=== PATIENT | female | born 1950 | race Caucasian/White ===

== ENCOUNTER 2022-08-14 14:48 | Outpatient (CLI) | payer MEDICARE, SELFPAY ==
--- NOTE | 2022-08-14 15:00 | CRLHL7_ITS ---
For Patients: As a result of the Century Cures Act, medical imaging exams and procedure reports are released immediately into your electronic medical record. You may view this report before your referring provider. If you have questions, please contact your health care provider. INDICATION: Right clavicular mass. Previous reduction mammoplasty. Gastric banding. TECHNIQUE: Contrast-enhanced CT of the chest. 75 cc nonionic Isovue-[id number] administered. COMPARISON: None. FINDINGS: No supraclavicular mass identified. No thoracic lymphadenopathy. No pleural or pericardial effusions. The trachea and mainstem bronchi are patent and clear. The thoracic aorta is of normal caliber. The mid and distal esophagus is thick-walled with a small esophageal hiatal hernia and postsurgical changes from laparoscopic gastric banding. The esophageal wall thickening could be related to esophagitis. Consider double-contrast esophagram or upper endoscopy if clinically indicated. The included thyroid gland is within normal limits. The included breast tissue is unremarkable. Normal adrenal glands. No splenomegaly. No definite hydronephrosis although neither kidney is fully or optimally included. The visualized gallbladder and liver are grossly unremarkable. The included skeleton demonstrates mild hypertrophic spurring of the right medial clavicular head. Degenerative disc disease of the lower thoracic/upper lumbar spine. IMPRESSION: 1. The distal esophagus with an esophageal hiatal hernia. Consider upper endoscopy or double-contrast esophagram to exclude a mucosal lesions. Clinical correlation is recommended as well. Postsurgical change from a laparoscopic gastric band. 2. No acute cardiopulmonary process identified. Clear included lungs. No thoracic lymphadenopathy. 3. No abnormality in the right supraclavicular space. Please note that all CT scans at this facility use dose modulation, iterative reconstruction, and/or weight-based dosing when appropriate to reduce radiation dose to as low as reasonably achievable. Dictated by Will Aguiar MD @ 08/14/2022 7:13:19 PM (Electronically Signed)
[2022-08-14 15:20] LABS: Creatinine* 0.9 mg/dL (0.5-1.5); Estimated Glomerular Filt Rate 68 ml/min
== END 2022-08-14 14:49 | disposition home or self-care (01) ==
LOC: CT 14:49
PROVIDERS: PCP Internal Medicine; Visit Provider Internal Medicine
DX: R22.2 Localized swelling, mass and lump, trunk (principal); K44.9 Diaphragmatic hernia without obstruction or gangrene
CPT/HCPCS: 36415; 71260; 82565; Q9967

== ENCOUNTER 2022-09-11 15:49 | Outpatient (CLI) | payer MEDICARE, SELFPAY ==
--- NOTE | 2022-09-11 16:00 | CRLHL7_ITS ---
For Patients: As a result of the Century Cures Act, medical imaging exams and procedure reports are released immediately into your electronic medical record. You may view this report before your referring provider. If you have questions, please contact your health care provider. Indication: LUMP ANTERIOR NECK Technique: Grayscale and color Doppler ultrasound of the area of concern performed along the right clavicle. Comparison: CT 08/14/2022 Findings: There is hypertrophic prominence to the medial right clavicular and which corresponds with the area of concern. If associated degenerative joint disease of the sternoclavicular joint with joint space narrowing, spurring and synovial hypertrophy. No suspicious findings. No abnormal vascularity. Impression: Right sternoclavicular degenerative joint disease with hypertrophic spurring of the right medial clavicle accounting for the clinical findings. No suspicious findings. Dictated by Talat Foy MD @ 09/12/2022 3:09:39 PM (Electronically Signed)
--- NOTE | 2022-09-11 17:15 | CRLHL7_ITS ---
For Patients: As a result of the Century Cures Act, medical imaging exams and procedure reports are released immediately into your electronic medical record. You may view this report before your referring provider. If you have questions, please contact your health care provider. BILATERAL SCREENING MAMMOGRAM WITH COMPUTER-AIDED DETECTION AND TOMOSYNTHESIS TECHNIQUE: CC and MLO views were obtained. These mammographic images have been obtained using full-field digital technique. These mammographic images were interpreted with the benefit of computer-aided detection. Breast Tomosynthesis was used in this interpretation. COMPARISON FILM: 07/07/2021, 06/17/2018, 06/04/2017. FINDINGS: The breasts are heterogeneously dense, which may obscure small masses IMPRESSION: There is no radiographic evidence for malignancy. ASSESSMENT: BI-RADS Category 1: Negative RECOMMENDATION: Routine screening mammogram in 1 year. A lay language report of this examination will be provided to the patient. Talat Foy M.D. Diagnostic Radiologist [email or web address] Transcribed: 3:38 pm DW/Dictated by: Talat Foy MD @ 09/12/2022 9:07:00 AM (Electronically Signed)
== END 2022-09-11 15:50 | disposition home or self-care (01) ==
LOC: US 15:50
PROVIDERS: PCP Internal Medicine; Visit Provider Internal Medicine
DX: Z12.31 Encounter for screening mammogram for malignant neoplasm of breast (principal); R92.2 Inconclusive mammogram; R22.1 Localized swelling, mass and lump, neck; M19.09 Primary osteoarthritis, other specified site
CPT/HCPCS: 76536; 77063; 77067

== ENCOUNTER 2022-11-16 08:25 | Outpatient (CLI) | payer MEDICARE, SELFPAY ==
[2022-11-16 10:03] LABS: Chloride* 107 mmol/L (96-114); Potassium* 4.2 mmol/L (3.6-5.1); Sodium* 141 mmol/L (135-149)
[2022-11-16 10:05] LABS: Cholesterol* 197 mg/dL (90-199)
[2022-11-16 10:06] LABS: Blood Urea Nitrogen* 17 mg/dL (7-30); Calcium* 9.1 mg/dL (8.4-10.6); Carbon Dioxide* 29 mmol/L (20-32); Creatinine* 0.8 mg/dL (0.5-1.5); Estimated Glomerular Filt Rate 79 ml/min; Glucose* 106 mg/dL (60-115); Triglycerides* 121 mg/dL (40-149)
[2022-11-16 10:07] LABS: HDL Cholesterol* 81 mg/dL (>=50); LDL Cholesterol Calculated 92 mg/dL (<100)
[2022-11-16 10:22] LABS: Vitamin D 25 Hydroxy* 56 ng/mL (30-80)
== END 2022-11-16 08:26 | disposition home or self-care (01) ==
LOC: NFLDREF 08:25
PROVIDERS: PCP Internal Medicine; Visit Provider Internal Medicine
DX: I10 Essential (primary) hypertension (principal); E03.9 Hypothyroidism, unspecified; E78.5 Hyperlipidemia, unspecified; M81.0 Age-related osteoporosis without current pathological fracture
CPT/HCPCS: 80048; 80061; 82306; 84443

== ENCOUNTER 2023-04-10 08:45 | Outpatient (CLI) | payer MEDICARE, SELFPAY ==
--- NOTE | 2023-04-10 09:15 | MR_ITS ---
[facility] [address] [facility] [address] Phone:?[phone] Fax:?[phone] Referring Physician Information: Lilli Lizarraga M.D. [facility] [address] [facility] [address] Phone:?[phone] Fax:?[phone] Patient:?Tracee Almazan D.O.B:?1950 Sex:?Female Phone:?[phone] [facility] MRN:?[id number] Exam Date:?04/10/2023 EXAM: MRI of the LEFT SHOULDER, without contrast CLINICAL INFORMATION: Female, 72 years old, with left shoulder pain. INDICATION: Evaluate for rotator cuff tear. PRIOR SURGERY: None reported. PLAIN FILMS: None available. COMPARISONS: No prior MRIs available. TECHNICAL INFORMATION: Using a 1.5T MR scanner and a localizing surface coil: coronal obliques: PD, T2, STIR sagittal obliques: PD, T2 axials: PD, T2 SEDATION: None CONTRAST: None FINDINGS: Bones: Proximal humerus: No fracture or marrow edema/pathology. No humeral Hill-Sachs or reverse Hill-Sachs lesion/impaction or contusion. Glenoid: No fracture or marrow edema/pathology. No osseous Bankart lesion. Rotator cuff and muscles/tendons: Supraspinatus: Mild-moderate supraspinatus tendinopathy with partial-thickness articular surface tearing of the posterior distal tendon fibers over an area measuring 8 mm anteroposterior by 7 mm mediolateral and involving approximate one third of the tendon thickness. There is also a 4 x 5 mm area of low-grade partial-thickness anterior insertional footprint tearing. No full-thickness tear or muscle atrophy. Infraspinatus: Mild infraspinatus tendinopathy, without tendon tear or muscle atrophy. Teres minor: No tendinopathy, tear or atrophy. Subscapularis: Mild tendinopathy of the superior distal subscapularis, without tendon tear or muscle atrophy. Deltoid: No strain or atrophy. Coracoacromial arch: Acromion morphology: The acromion has type II morphology. No discrete subacromial osseous spur or os acromiale. Acromiohumeral space: The acromiohumeral space is within normal limits. Coracohumeral space: The coracohumeral space is within normal limits. Acromioclavicular joint: Joint: Mild-moderate AC joint arthropathy with 3 mm of inferior osteophytosis, which effaces the underlying supraspinatus (sagittal T2 series 9 image 14 and coronal T2 series 7 image 9). Ligaments: Coracoclavicular ligaments are intact. Bursae: Subacromial-subdeltoid: Mild subacromial-subdeltoid bursitis. Subcoracoid: No convincing subcoracoid bursal thickening/bursitis. Biceps tendon: The long head of the biceps tendon is present within the bicipital groove. Moderate tendinopathy and ill-defined low-intermediate grade partial tearing of the intra-articular biceps long head tendon (sagittal T2 series 9 images 7-13). Glenohumeral joint: Effusion/cyst: Large glenohumeral joint effusion, with extensive synovitis/debris throughout the joint space. Articular cartilage: Humeral head: Moderate generalized thinning of the articular cartilage is present throughout the superomedial and medial aspects of the humeral head with mild inferomedial marginal osteophytosis. Glenoid: Mild to moderate generalized thinning of the glenoid articular cartilage, with mild marginal osteophytosis. Loose bodies: No discrete intra-articular body within the joint. Labrum:?Circumferential degeneration and fraying of the labrum, which is of doubtful clinical significance. No paralabral cyst. Inferior glenohumeral ligament/axillary pouch:?Moderate thickening of inferior capsuloligamentous structures (coronal PD series 5 images 12-18). Additionally, there is soft tissue thickening throughout the rotator interval (sagittal PD series 8 images 9-15). IMPRESSION: 1. Mild-moderate supraspinatus tendinopathy with a small area of low-grade partial-thickness articular surface tearing of the posterior distal tendon fibers as well as a small area of low-grade partial-thickness anterior insertional footprint tearing. 2. Mild infraspinatus & subscapularis tendinopathy, without tear. 3. Mild-moderate osteoarthritis of the glenohumeral joint with a large joint effusion and extensive synovitis/debris throughout the joint space. 4. Moderate tendinopathy and ill-defined low-intermediate grade partial- thickness tearing of the intra-articular biceps long head tendon. 5. Circumferential degeneration and fraying of the labrum, which is of doubtful clinical significance. 6. Findings in keeping with any clinical symptoms of adhesive capsulitis. BC Electronically signed on 04/10/2023 3:29:00 PM by Wayne Enciso M.D.
== END 2023-04-10 08:46 | disposition home or self-care (01) ==
LOC: MRI 08:46
PROVIDERS: PCP Internal Medicine; Visit Provider Internal Medicine
DX: M25.512 Pain in left shoulder (principal); M67.912 Unspecified disorder of synovium and tendon, left shoulder; M75.102 Unspecified rotator cuff tear or rupture of left shoulder, not specified as traumatic; M19.012 Primary osteoarthritis, left shoulder; M75.02 Adhesive capsulitis of left shoulder
CPT/HCPCS: 73221

== ENCOUNTER 2023-09-12 14:40 | Outpatient (CLI) | payer MEDICARE, SELFPAY ==
[2023-09-12 15:49] VITALS: BP 179/94; PULSE 67
--- NOTE | 2023-09-12 15:56 | W.PM.STED ---
Stress Test Note Date Date Seen: 09/12/23 Date of test: 09/12/23 Providers Referring provider: Clayton Barber Primary care provider: Lilli Lizarraga Stress test physician: Es Gottlieb Stress Test Note Stress test ordered: Stress Echo Indication for test: Intermittent chest pain Stress test medicine: None Results discussion: Resting EKG: Sinus rhythm, 63 beats per minute. Flipped T-waves without ST segment changes certainly in aVL, possibly lead 1. Resting blood pressure: 150/78 Stress test: Patient was exercised on the treadmill following standard Albin protocol. She was able to exercise 6 minutes 20 seconds, needing to stop due to reaching maximum exercise capacity. She did feel short of breath and her legs were tired. She had no chest pain. She had a maximum heart rate of 129 beats per minute which was 102% a calculated target heart rate of 126. This is equivalent to 7.5 Mets. She had a high rate pressure product of 22,264. She had a maximum blood pressure of 2 8/72 showing hypertensive response to exercise. Of note, patient took none of her morning medicines which would have included amlodipine and furosemide. There were no concerning ischemic changes, no ST segment changes indicative of ischemia. Again, patient had no chest pain. She was discharged home in stable condition. Impression: Subjectively negative, objectively negative EKG portion of this stress echo. Follow up suggested: Await echo images to couple this for a full formal diagnostic. Patient discharged home in stable condition interim.
== END 2023-09-12 14:41 | disposition home or self-care (01) ==
LOC: STRESS 14:41
PROVIDERS: PCP Internal Medicine; Visit Provider Internal Medicine
DX: R07.9 Chest pain, unspecified (principal)
CPT/HCPCS: 93016; 93325; 93351

== ENCOUNTER 2023-10-25 09:24 | Outpatient (CLI) | payer MEDICARE, SELFPAY ==
--- OUTSIDE RECORDS SUMMARY | 2023-10-25 09:27 | XMS_ITS | Clinical Summary ---
Author Name Unknown Organization [facility] [employer] [facility] Address [place], [place] [address] Care Team Providers Care Naval Engineer Name Role Phone Lilli Lizarraga MD Primary Care Provider [phone]- [phone] Allergies No known active allergies Encounters Date Type Department Care Team Description 09/12/2023 3:00 PM BLUEPRINT TRIMMER Orders Only [facility] [facility] [address] [place] [address] 2 scans: (2-Ord) ECHO STRESS EXERCISE WO CONTRAST W COLOR W LTD DOPPLER ([id number]) 08/27/2023 3:25 PM BLUEPRINT TRIMMER - 08/27/2023 7:51 PM BLUEPRINT TRIMMER Emergency [facility] [address] [place] [address] Praveen Bustillo MD Chest pain, unspecified type (Primary Dx) Discharge Disposition: Home Self Care 08/27/2023 Travel from Last 3 Months Social History Tobacco Use Types Packs/Day Years Used Date Smoking Tobacco: Never Assessed Sex and Gender Information Value Date Recorded Sex Assigned at Not on file Gender Identity Not on file Sexual Orientation Not on file Last Filed Vital Signs Vital Sign Reading Time Taken Comments Blood Pressure 155/84 08/27/2023 7:39 PM BLUEPRINT TRIMMER Pulse 79 08/27/2023 6:35 PM BLUEPRINT TRIMMER Temperature 36.7 ??C (98 ??F) 08/27/2023 2:54 PM BLUEPRINT TRIMMER Respiratory Rate 16 08/27/2023 2:54 PM BLUEPRINT TRIMMER Oxygen Saturation 98% 08/27/2023 6:35 PM BLUEPRINT TRIMMER Inhaled Oxygen Concentration - - Weight 91.6 kg (202 lb) 08/27/2023 3:50 PM BLUEPRINT TRIMMER Height 168.9 cm (5' 6.5) 08/27/2023 3:50 PM BLUEPRINT TRIMMER Body Mass Index 32.12 08/27/2023 3:50 PM BLUEPRINT TRIMMER Plan of Treatment Health Maintenance Due Date Last Done Comments Tdap 1962 Depression screening for age 12+ 1963 BMI (ht and wt on same day) for age 18+ 1969 Hepatitis C screening for ag e 18-79 1969 Tetanus booster 1971 Colonoscopy through age 75 1996 Lipids for age 45-75 1996 Mammogram for age 45-75 1996 Zoster (shingles) series for age 50+ (1 of 2) 2001 DEXA/DXA scan for age 65+ 2016 Pneumococcal series for age 65+ (1 - PCV) 2016 Influenza for age 65+ 06/07/2023 COVID-19 vaccine series Completed 08/26/20, 03/27/2023, 06/22/2022, Additional history exists Procedures Procedure Name Priority Date/Time Associated Diagnosis Comments ECHO STRESS EXERCISE WO CONTRAST W COLOR W LTD DOPPLER Routine 09/12/2023 3:50 PM BLUEPRINT TRIMMER Chest pain TROPONIN T (HS) ONE TIME Timed 08/27/2023 5:[address] CHEST PE STUDY STAT 08/27/2023 5:1 8 PM BLUEPRINT TRIMMER PROTIME-INR STAT 08/27/2023 3:45 PM BLUEPRINT TRIMMER TROPONIN T (HS) ACUTE W/2HR REFLEX STAT 08/27/2023 3:45 PM BLUEPRINT TRIMMER BASIC METABOLIC PANEL STAT 08/27/2023 3:45 PM BLUEPRINT TRIMMER D-DIMER,QUANTITATIV E STAT 08/27/2023 3:45 PM BLUEPRINT TRIMMER CBC W PLT NO DIFF STAT 08/27/2023 3:4 5 PM BLUEPRINT TRIMMER XR CHEST 1 VIEW PORTABLE STAT 08/27/2023 3:44 PM BLUEPRINT TRIMMER EKG 12 LEAD STAT 08/27/2023 2:57 PM BLUEPRINT TRIMMER from Last 3 Months Results * ECHO STRESS EXERCISE WO CONTRAST W COLOR W LTD DOPPLER (09/12/2023 3:50 PM BLUEPRINT TRIMMER) AORTIC VALVE MEAN PG 4 mmHg PEAK TR VELOCITY 2.3 m/s LVEDD 3.7 cm EJECTION FRACTION 60 - 65% Anatomical Region Laterality Modality Ultrasound 09/12/2023 2:51 PM BLUEPRINT TRIMMER Narrative 09/12/2023 4:18 PM BLUEPRINT TRIMMER STRESS ECHOCARDIOGRAM PATT ALMAZAN ? Accession#: ?? [id number] : ?1950 73 years Study Date: ?? 09/12/2023 2:51:43 PM Gender: F ?BP: ? 150/78 mmHg Height: 168.00 cm ?BSA: ?2.02 m? ? ? Weight: 92.00 kg ? Tech: ? MCK ? Referring MD: CLAYTON PAZ Site: ? [facility] Reading Location: Mobile-OP Patient Location: Outpatient. Procedure: Stress Echo, Limited 2D , Color Doppler and Limited Spectral Doppler. Indication for study: Chest pain Cardiac Rhythm: Regular.Study quality: Fair. Final Impressions: 1. Maximum stress test with 86.7% of age predicted maximum heart rate achieved. 2. See separate report for EKG interpretation. 3. During stress exam the patient developed no significant symptoms. 4. Negative stress echo for ischemia. 5. Post stress, normal left ventricular size, normal global systolic function with an estimated EF of 70 to 75%. Stress Data: ? HR ?Systolic Diastolic Time Duration Minutes Seconds Baseline 65 bpm ?150 ?78 mmHg ?6 :20 ? Peak ? 128 bpm ?? 190 ?90 mmHg Max Pred HR ?148 % of Max ? 87% Double Product [id number] Echo Findings:This is a negative stress echo test for ischemia. Post stress, normal left ventricular size, normal global systolic function with an estimated EF of 70 to 75%. LV regional wall motion abnormalities are not present post exercise. EKG:See separate report for EKG interpretation. Exam Protocol:The patient presents with no significant symptoms at baseline. Maximum stress test with 86.7% of age predicted maximum heart rate achieved. The blood pressure response was normal. The patient developed no significant symptoms during the stress exam. . Chamber Sizes and Function Normal left ventricular size, normal global systolic function with an estimated EF of 60 - 65%. LV regional wall motion abnormalities are not present. Valves, RV Pressures and Diastolic Function The aortic valve is trileaflet, no stenosis and no regurgitation. The mitral valve is normal in structure, trace mitral regurgitation. The tricuspid valve is normal in structure. Tricuspid regurgitation is mild. The tricuspid regurgitant velocity is 2.3 m/s, the estimated right ventricular systolic pressure is 22 mmHg plus right atrial pressure. MEASUREMENTS AND CALCULATIONS 2-D Measurements and LV Function: LVID (d) 3.7 cm LV FS% (2D) ?? 52 % LVID (s) 1.8 cm LVOT diameter 2.1 cm IVS (d) ??1.3 cm HR ?65 bpm LVPW (d) 1.1 cm Ao Sinus 3.0 cm Asc Ao ?? 3.1 cm Diastology: Mitral E Peak 0.84 m/s A Peak 1.13 m/s E/A ?0.7 DT ? 315 msec Aortic Valve: Vmax ? 1.5 m/s ??JAMA (V) ?? 2.70 cm? ? ? VTI ?0.32 m ?? JAMA (I) ?? 2.84 cm? ? ? LVOT V max 1.2 m/s ??Max PG ?9 mmHg LVOT VTI ?? 0.26 m ?? Mean PG ?? 4 mmHg SV ? 89 ml ?Dim Index 0.82 SV index ?? 44 ml/m? ? ? Mitral Valve: MVA ?2.4 cm? ? ? MV P 1/2 91 msec Tricuspid Valve and estimated PA pressures: TR Vmax 2.3 m/s TR maxG 22 mmHg . This study was interpreted by an [facility] accredited facility. CC: [facility] ([facility]) [facility]. ??Final ?? Procedure Note Eddy Nicholas MD - 09/12/2023 STRESS ECHOCARDIOGRAM PATT ALMAZAN : 1950 73 years Study Date: 09/12/2023 2:51:43 PM Gender: F BP: 150/78 mmHg Height: 168.00 cm BSA: 2.02 m? ? ? Weight: 92.00 kg [place] [facility] [place]erring MD: CLAYTON PAZ Site: [facility] Reading Location: Mobile-OP Patient Location: Outpatient. Procedure: Stress Echo, Limited 2D , Color Doppler and Limited SpectralDoppler. Indication for study: Chest pain Cardiac Rhythm: Regular.Study quality: Fair. Final Impressions: 1. Maximum stress test with 86.7% of age predicted maximum heart rateachieved. 2. See separate report for EKG interpretation. 3. During stress exam the patient developed no significant symptoms. 4. Negative stress echo for ischemia. 5. Post stress, normal left ventricular size, normal global systolicfunction with an estimated EF of 70 to 75%. Stress Data: HR Systolic Diastolic Time Duration Minutes Seconds Baseline 65 bpm 150 78 mmHg 6 :20 Peak 128 bpm 190 90 mmHg Max Pred HR 148 % of Max 87% Double Product [id number] Echo Findings:This is a negative stress echo test for ischemia. Poststress, normal left ventricular size, normal global systolic function withan estimated EF of 70 to 75%. LV regional wall motion abnormalities arenot present post exercise. EKG:See separate report for EKG interpretation. Exam Protocol:The patient presents with no significant symptoms atbaseline. Maximum stress test with 86.7% of age predicted maximum heartrate achieved. The blood pressure response was normal. The patientdeveloped no significant symptoms during the stress exam. . Chamber Sizes and Function Normal left ventricular size, normal global systolic function with anestimated EF of 60 - 65%. LV regional wall motion abnormalities are notpresent. Valves, RV Pressures and Diastolic Function The aortic valve is trileaflet, no stenosis and no regurgitation. Themitral valve is normal in structure, trace mitral regurgitation. Thetricuspid valve is normal in structure. Tricuspid regurgitation is mild.The tricuspid regurgitant velocity is 2.3 m/s, the estimated rightventricular systolic pressure is 22 mmHg plus right atrial pressure. MEASUREMENTS AND CALCULATIONS 2-D Measurements and LV Function: LVID (d) 3.7 cm LV FS% (2D) 52 % LVID (s) 1.8 cm LVOT diameter 2.1 cm IVS (d) 1.3 cm HR 65 bpm LVPW (d) 1.1 cm Ao Sinus 3.0 cm Asc Ao 3.1 cm Diastology: Mitral E Peak 0.84 m/s A Peak 1.13 m/s E/A 0.7 DT 315 msec Aortic Valve: Vmax 1.5 m/s JAMA (V) 2.70 cm? ? ? VTI 0.32 m JAMA (I) 2.84 cm? ? ? LVOT V max 1.2 m/s Max PG 9 mmHg LVOT VTI 0.26 m Mean PG 4 mmHg SV 89 ml Dim Index 0.82 SV index 44 ml/m? ? ? Mitral Valve: MVA 2.4 cm? ? ? MV P 1/2 91 msec Tricuspid Valve and estimated PA pressures: TR Vmax 2.3 m/s TR maxG 22 mmHg . This study was interpreted by an [facility] accredited facility. CC: [facility] ([facility]) [facility]. Final Clayton Paz MD ECHO ORD * TROPONIN T (HS) ONE TIME (08/27/2023 5:41 PM BLUEPRINT TRIMMER) TROPONIN T HS 9 6-10 ng/L ng/L 08/27/2023 6:33 PM BLUEPRINT TRIMMER [facility] Blood BLOOD SPECIMEN / Unknown Venipuncture / Unknown 08/27/2023 5:41 PM BLUEPRINT TRIMMER 08/27/2023 5:45 PM BLUEPRINT TRIMMER Praveen Bustillo MD CHEMISTRY [facility] [address] [place], [place] [id number] * CT CHEST PE STUDY (08/27/2023 5:18 PM BLUEPRINT TRIMMER) Anatomical Region Laterality Modality CHEST, THORAX, HEART Computed To mography 08/27/2023 6:12 PM BLUEPRINT TRIMMER Impressions 08/27/2023 6:12 PM BLUEPRINT TRIMMER 1. No pulmonary emboli. 2. Diffuse esophageal wall thickening greatest in the distal esophagus. Esophagitis suspected although mass difficult to exclude. Please note that all CT scans at this facility use dose modulation, iterative reconstruction, and/or weight-based dosing when appropriate to reduce radiation dose to as low as reasonably achievable. Dictated by Sarmad Dc MD @ 08/27/2023 6:12:38 PM (Electronically Signed) Narrative 08/27/2023 6:12 PM BLUEPRINT TRIMMER For Patients: ??As a result of the Century Cures Act, medical imaging exams and procedure reports are released immediately into your electronic medical record. ??You may view this report before your referring provider. ??If you have questions, please contact your health care provider. INDICATION: Pulmonary embolism suspected, positive D-dimer TECHNIQUE: CT chest PE was acquired with 100 cc Omnipaque 350 IV contrast. COMPARISON: None. FINDINGS: Heart and vasculature: Contrast opacification of the pulmonary arterial tree is adequate. No sign of pulmonary embolism. Heart size is normal. Thoracic aorta and pulmonary artery are normal in caliber. Lungs and pleural: No suspicious nodules or infiltrates. ??No pleural effusions, pleural thickening, or pneumothorax. Lymph nodes/mediastinum: No mediastinal, hilar, or axillary adenopathy. Esophageal wall is diffusely thickened, greatest in the distal esophagus. Small hiatal hernia thickened. Chest wall: No masses. Upper abdomen: Gastric band in place. Bones: Unremarkable for age. Procedure Note Sarmad Dc MD - 08/27/2023 For Patients: As a result of the Cures Act, medical imagingexams and procedure reports are released immediately into your electronicmedical record. You may view this report before your referring provider.If you have questions, please contact your health care provider. INDICATION: Pulmonary embolism suspected, positive D-dimer TECHNIQUE: CT chest PE was acquired with 100 cc Omnipaque 350 IV contrast. COMPARISON: None. FINDINGS: Heart and vasculature: Contrast opacification of the pulmonary arterialtree is adequate. No sign of pulmonary embolism. Heart size is normal.Thoracic aorta and pulmonary artery are normal in caliber. Lungs and pleural: No suspicious nodules or infiltrates. No pleuraleffusions, pleural thickening, or pneumothorax. Lymph nodes/mediastinum: No mediastinal, hilar, or axillary adenopathy.Esophageal wall is diffusely thickened, greatest in the distal esophagus.Small hiatal hernia thickened. Chest wall: No masses. Upper abdomen: Gastric band in place. Bones: Unremarkable for age. IMPRESSION: 1. No pulmonary emboli. 2. Diffuse esophageal wall thickening greatest in the distal esophagus.Esophagitis suspected although mass difficult to exclude. Please note that all CT scans at this facility use dose modulation,iterative reconstruction, and/or weight-based dosing when appropriate toreduce radiation dose to as low as reasonably achievable. Dictated by Sarmad Dc MD @ 08/27/2023 6:12:38 PM (Electronically Signed) Praveen Bustillo MD CT * TROPONIN T ACUTE W/2HR REFLEX (08/27/2023 3:45 PM BLUEPRINT TRIMMER) TROPONIN T HS 9 6-10 ng/L ng/L 08/27/2023 4:08 PM BLUEPRINT TRIMMER [facility] Blood BLOOD SPECIMEN / Unknown Venipuncture / Unknown 08/27/2023 3:45 PM BLUEPRINT TRIMMER 08/27/2023 3:48 PM BLUEPRINT TRIMMER Narrative [facility] - 08/27/2023 4:08 PM BLUEPRINT TRIMMER hs-cTnT (Elecsys Troponin T Gen 5) concentration (s) above the sex-specific 99th percentile (16 ng/L or greater for males or 11 ng/L or greater for females) are indicative of myocardial injury. If initial hs-cTnT <=100 ng/L at presentation, a 0h/2h ABSOLUTE (ng/L) delta change (rising or falling) of >=10 ng/L suggests a significant change, whereas a 0h/2h delta change <=3 ng/L suggests no significant change. If initial hs-cTnT >100 ng/L at presentation, a 0h/2h/ RELATIVE (percent, %) delta change of 20% is suggested to distinguish patients with acute vs. chronic myocardial injury. There are multiple etiologies that can cause hs-cTnT increases above the 99th percentile (myocardial injury) other than acute myocardial infarction. Clinical context and careful clinical evaluation are critical for diagnosis and risk-stratification. The diagnosis of acute myocardial infarction requires a rising and/or falling pattern in hs-cTnT concentrations with at least one value above the sex-specific 99th percentile PLUS at least one of the following clinical criteria: ischemic symptoms, new or presumed new significant ST-T wave changes or new LBBB, development of pathological Q waves, imaging evidence of new loss of viable myocardium or new regional wall motion abnormality, or identification of intracoronary atherothrombosis or an acute angiographic culprit on coronary angiography. In appropriate low-risk patients with a non-ischemic electrocardiogram without active chest pain with a symptom onset >3-hours without recurrence, a single initial hs-cTnT<6 ng/L identifies patient with a very low risk in emergency department patient population. Praveen Bustillo MD CHEMISTRY [facility] [address] [place] [address] * (ABNORMAL) CBC w PLT no Diff (08/27/2023 3:45 PM BLUEPRINT TRIMMER) WHITE BLOOD COUNT 7.2 4.5 - 11.0 thou/cu mm 08/27/2023 3:58 PM [facility] RED BLOOD COUNT 4.69 4.00 - 5.20 mil/cu mm 08/27/2023 3:58 PM [facility] HEMOGLOBIN 11.2(L) 12.0 - 16.0 g/dL 08/27/2023 3:58 PM [facility] HEMATOCRIT 35.5 33.0 - 51.0 % 08/27/2023 3:58 PM [facility] MCV 76(L) 80 - 100 fL 08/27/2023 3:58 PM [facility] MCH 23.9(L) 26.0 - 34.0 pg 08/27/2023 3:58 PM [facility] MCHC 31.5(L) 32.0 - 36.0 g/dL 08/27/2023 3:58 PM [facility] RDW 18.4(H) 11.5 - 15.5 % 08/27/2023 3:58 PM [facility] PLATELET COUNT 233 140 - 440 thou/cu mm 08/27/2023 3:58 PM [facility] MPV 10.7 6.5 - 11.0 fL 08/27/2023 3:58 PM [facility] Blood BLOOD SPECIMEN / Unknown Venipuncture / Unknown 08/27/2023 3:45 PM BLUEPRINT TRIMMER 08/27/2023 3:48 PM BLUEPRINT TRIMMER Praveen Bustillo MD HEMATOLOGY Performing Organization Address City/State/[place] Co de Phone Number [facility] [address] [place] [address] * PROTIME-INR (08/27/2023 3:45 PM BLUEPRINT TRIMMER) INR 1.0 <1.3 08/27/2023 4:00 PM [facility] PROTIME 11.2 10.3 - 12.3 sec 08/27/2023 4:00 PM [facility] Blood BLOOD SPECIMEN / Unknown Venipuncture / Unknown 08/27/2023 3:45 PM BLUEPRINT TRIMMER 08/27/2023 3:48 PM BLUEPRINT TRIMMER [facility] - 08/27/2023 4:00 PM BLUEPRINT TRIMMER ?Therapeutic Range 2.0-3.0 for most anticoagulated patients 2.5-3.5 or 4.0 for high risk patients The INR is only used for patients on stable oral anticoagulant therapy. It makes no significant contribution to the diagnosis or treatment of patients whose Protime is prolonged for other reasons. INR results are increased when heparin levels exceed 1.0 U/mL, which corresponds to an aPTT >125 seconds if the patient is on UFH. Praveen Bustillo MD HEMATOLOGY Performing Organization Address [facility] de Phone Number [facility] [address] [place] [address] * (ABNORMAL) D-Dimer Quantitative (08/27/2023 3:45 PM BLUEPRINT TRIMMER) [facility] D-DIMER,QUANTI TATIVE 0.88(H) <0.49 FEU mcg/mL FEU mcg/mL 08/27/2023 4:00 PM BLUEPRINT TRIMMER [facility] D-DIMER INTERP Abnormal(A ) 08/27/2023 4:00 PM [facility] Blood BLOOD SPECIMEN / Unknown Venipuncture / Unknown 08/27/2023 3:45 PM BLUEPRINT TRIMMER 08/27/2023 3:48 PM BLUEPRINT TRIMMER [facility] - 08/27/2023 4:00 PM BLUEPRINT TRIMMER The cut off value for exclusion of Deep Vein Thrombosis and / or Pulmonary Embolism is 0.50 FEU mcg/mL For patients greater than 50 years of age the upper limit is age dependent and was calculated with the formula: ?? (PATIENT AGE x 0.01) FEU mcg/mL = Upper limit of normal range Praveen Bustillo MD HEMATOLOGY Performing Organization Address [facility]/[place] Co de Phone Number [facility] [address] [place] [address] * (ABNORMAL) Basic Metabolic Panel (08/27/2023 3:45 PM BLUEPRINT TRIMMER) SODIUM 142 136 - 145 mmol/L 08/27/2023 4:08 PM [facility] POTASSIUM 5.3(H) 3.5 - 5.1 mmol/L 08/27/2023 4:08 PM [facility] CHLORIDE 105 98 - 107 mmol/L 08/27/2023 4:08 PM [facility] CO2,TOTAL 28 22 - 29 mmol/L 08/27/2023 4:08 PM [facility] ANION GAP 9 5 - 18 08/27/2023 4:08 PM [facility] GLUCOSE 96 70 - 99 mg/dL 08/27/2023 4:08 PM [facility] CALCIUM 9.4 8.8 - 10.2 mg/dL 08/27/2023 4:08 PM [facility] BUN 14 8 - 23 mg/dL 08/27/2023 4:08 PM [facility] CREATININE 0.74 0.50 - 0.90 mg/dL 08/27/2023 4:08 PM [facility] BUN/CREAT RATIO 19 10 - 20 4:08 PM [facility] eGFR 86(L) >90 mL/min/1.7 3m2 08/27/2023 4:08 PM [facility] Comment:As of 2021, eG FR is calculated by the CKD-EPI creatinine equation without race adjustment. ??eGFR can be influenced by muscle mass, exercise, and diet. ??The reported eGFR is an estimation only and is only applicable if the renal function is stable. Blood BLOOD SPECIMEN / Unknown Venipuncture / Unknown 08/27/2023 3:45 PM BLUEPRINT TRIMMER 08/27/2023 3:48 PM BLUEPRINT TRIMMER Praveen Bustillo MD CHEMISTRY [facility] [address] [place] [address] * XR CHEST 1 VIEW PORTABLE (08/27/2023 3:44 PM BLUEPRINT TRIMMER) Anatomical Region Laterality Modality HEART, THORAX, CHEST Digital Rad iography 08/27/2023 4:20 PM BLUEPRINT TRIMMER Impressions 08/27/2023 4:20 PM BLUEPRINT TRIMMER No acute cardiopulmonary findings. Dictated by Katelynn Narvaez MD @ 08/27/2023 4:20:05 PM (Electronically Signed) Narrative 08/27/2023 4:20 PM BLUEPRINT TRIMMER For Patients: ??As a result of the Cures Act, medical imaging exams and procedure reports are released immediately into your electronic medical record. ??You may view this report before your referring provider. ??If you have questions, please contact your health care provider. INDICATION: Chest pain. TECHNIQUE: Chest 1 view. COMPARISON: None. FINDINGS: No focal consolidation, pleural effusion, or pneumothorax. Normal heart size and pulmonary vascularity. Laparoscopic adjustable gastric band in place. The bones are unremarkable. Procedure Note Katelynn Narvaez MD - 08/27/2023 For Patients: As a result of the s Act, medical imagingexams and procedure reports are released immediately into your electronicmedical record. You may view this report before your referring provider.If you have questions, please contact your health care provider. INDICATION: Chest pain. TECHNIQUE: Chest 1 view. COMPARISON: None. FINDINGS: No focal consolidation, pleural effusion, or pneumothorax. Normal heartsize and pulmonary vascularity. Laparoscopic adjustable gastric band inplace. The bones are unremarkable. IMPRESSION: No acute cardiopulmonary findings. Dictated by Katelynn Narvaez MD @ 08/27/2023 4:20:05 PM (Electronically Signed) Praveen Bustillo MD GENERAL IMAGING * EKG 12 LEAD (08/27/2023 2:57 PM BLUEPRINT TRIMMER) Interpretation Normal sinus rhythm Normal ECG No previous ECGs available 1) rate 71 2) normal intervals 3) no sign of acute ischmia or infract 4) no comparison BEYOND NOW Ventricular Rate 71 BPM BEYOND NOW Atrial Rate 71 BPM BEYOND NOW P-R Interval 168 ms BEYOND NOW QRS Duration 82 ms BEYOND NOW QT 378 ms BEYOND NOW QTc 410 ms BEYOND NOW P [place] 44 degrees BEYOND NOW R [place] 10 degrees BEYOND NOW T [place] 82 degrees BEYOND NOW 08/27/2023 2:57 PM BLUEPRINT TRIMMER 08/27/2023 8:59 PM BLUEPRINT TRIMMER Ryan Ed Triage EKG ORD BEYOND NOW [place], [place] from Last 3 Months Care Teams Naval Engineer Relationship Specialty Start Date End Date Lilli Lizarraga MD [address] [place] [address] PCP - General Internal Medicine 08/27/23
--- NOTE | 2023-10-25 09:45 | CRLHL7_ITS ---
For Patients: As a result of the Century Cures Act, medical imaging exams and procedure reports are released immediately into your electronic medical record. You may view this report before your referring provider. If you have questions, please contact your health care provider. BILATERAL SCREENING MAMMOGRAM WITH COMPUTER-AIDED DETECTION AND TOMOSYNTHESIS TECHNIQUE: CC and MLO views were obtained. These mammographic images have been obtained using full-field digital technique. These mammographic images were interpreted with the benefit of computer-aided detection. Breast Tomosynthesis was used in this interpretation. COMPARISON FILM: 09/11/22, 07/07/21. FINDINGS: The breasts are heterogeneously dense, which may obscure small masses. IMPRESSION: There is no radiographic evidence for malignancy. ASSESSMENT: BI-RADS Category 2: Benign RECOMMENDATION: Routine screening mammogram in 1 year. A lay language report of this examination will be provided to the patient. Talat Foy M.D. Diagnostic Radiologist [email or web address] SP/Dictated by: Talat Foy MD @ 10/25/2023 12:13:00 PM (Electronically Signed)
== END 2023-10-25 09:25 | disposition home or self-care (01) ==
LOC: MAMMO 09:25
PROVIDERS: PCP Internal Medicine; Visit Provider Internal Medicine
DX: Z12.31 Encounter for screening mammogram for malignant neoplasm of breast (principal); R92.2 Inconclusive mammogram
CPT/HCPCS: 77063; 77067

== ENCOUNTER 2023-11-20 09:18 | Outpatient (CLI) | payer MEDICARE, SELFPAY ==
--- OUTSIDE RECORDS SUMMARY | 2023-11-21 10:25 | XMS_ITS | Clinical Summary ---
Author Name Unknown Organization [facility] s & [employer] [facility] Address [place], [place] [address] Care Team Providers Care Electro Mechanical Technologist Name Role Phone Lilli Lizarraga MD Primary Care Provider [phone] Allergies No known active allergies Encounters Date Type Department Care Team Description 09/12/2023 3:00 PM VICE PRESIDENT OF HUMAN RESOURCES Orders Only [facility] [address] [place] [address] 2 scans: (2-Ord) ECHO STRESS EXERCISE WO CONTRAST W COLOR W LTD DOPPLER ([id number]) 08/27/2023 3:25 PM VICE PRESIDENT OF HUMAN RESOURCES - 08/27/2023 7:51 PM VICE PRESIDENT OF HUMAN RESOURCES Emergency [facility] [address] [place] [address] Praveen Bustillo MD Chest pain, unspecified type [...] Comments Blood Pressure 155/84 08/27/2023 7:39 PM VICE PRESIDENT OF HUMAN RESOURCES Pulse 79 08/27/2023 6:35 PM VICE PRESIDENT OF HUMAN RESOURCES Temperature 36.7 ??C (98 ??F) 08/27/2023 2:54 PM VICE PRESIDENT OF HUMAN RESOURCES Respiratory Rate 16 08/27/2023 2:54 PM VICE PRESIDENT OF HUMAN RESOURCES Oxygen Saturation 98% 08/27/2023 6:35 PM VICE PRESIDENT OF HUMAN RESOURCES Inhaled Oxygen Concentration - - Weight 91.6 kg (202 lb) 08/27/2023 3:50 PM VICE PRESIDENT OF HUMAN RESOURCES Height 168.9 cm (5' 6.5) 08/27/2023 3:50 PM VICE PRESIDENT OF HUMAN RESOURCES Body Mass Index 32.12 08/27/2023 3:50 PM VICE PRESIDENT OF HUMAN RESOURCES Plan of Treatment Health Maintenance Due Date [...] W LTD DOPPLER Routine 09/12/2023 3:50 PM VICE PRESIDENT OF HUMAN RESOURCES Chest pain TROPONIN T (HS) ONE TIME Timed 08/27/2023 5:41 PM VICE PRESIDENT OF HUMAN [employer]OURCES CT CHEST PE STUDY STAT 08/27/2023 5:1 8 PM VICE PRESIDENT OF HUMAN RESOURCES PROTIME-INR STAT 08/27/2023 3:45 PM VICE PRESIDENT OF HUMAN RESOURCES TROPONIN T (HS) ACUTE W/2HR REFLEX STAT 08/27/2023 3:45 PM VICE PRESIDENT OF HUMAN RESOURCES BASIC METABOLIC PANEL STAT 08/27/2023 3:45 PM VICE PRESIDENT OF HUMAN RESOURCES D-DIMER,QUANTITATIV E STAT 08/27/2023 3:45 PM VICE PRESIDENT OF HUMAN RESOURCES CBC W PLT NO DIFF STAT 08/27/2023 3:4 5 PM VICE PRESIDENT OF HUMAN RESOURCES XR CHEST 1 VIEW PORTABLE STAT 08/27/2023 3:44 PM VICE PRESIDENT OF HUMAN RESOURCES EKG 12 LEAD STAT 08/27/2023 2:57 PM VICE PRESIDENT OF HUMAN RESOURCES from Last 3 Months Results * ECHO STRESS EXERCISE WO CONTRAST W COLOR W LTD DOPPLER (09/12/2023 3:50 PM VICE PRESIDENT OF HUMAN RESOURCES) AORTIC VALVE MEAN PG 4 mmHg PEAK TR VELOCITY 2.3 m/s LVEDD 3.7 cm EJECTION FRACTION 60 - 65% Anatomical Region Laterality Modality Ultrasound 09/12/2023 2:51 PM VICE PRESIDENT OF HUMAN RESOURCES Narrative 09/12/2023 4:18 PM VICE PRESIDENT OF HUMAN RESOURCES STRESS ECHOCARDIOGRAM PATT ALMAZAN ? Accession#: ?? [id number] : ?1950 73 years Study Date: ?? 09/12/2023 2:51:43 PM Gender: F ?BP: ? 150/78 mmHg Height: 168.00 cm ?BSA: ?2.02 m? ? ? Weight: 92.00 kg ? Tech: ? MCK ? Referring MD: CLAYTON PAZ Site: ? [facility] Reading Location: Mobile-OP Patient Location: Outpatient. Procedure: [...] % of Max ? 87% Double Product [id number] Echo Findings:This is a negative stress echo [...] . This study was interpreted by an [facility] accredited facility. CC: [facility] ([facility]) [facility]. ??Final ?? Procedure Note Eddy Nicholas MD - 09/12/2023 STRESS ECHOCARDIOGRAM PATT ALMAZAN : 1950 73 years Study Date: 09/12/2023 2:51:43 PM Gender: F BP: 150/78 mmHg Height: 168.00 cm BSA: 2.02 m? ? ? Weight: 92.00 kg Tech: [facility] Referring MD: CLAYTON PAZ Site: [facility] Reading Location: Mobile-OP Patient Location: [...] 148 % of Max 87% Double Product [id number] Echo Findings:This is a negative stress echo [...] . This study was interpreted by an [facility] accredited facility. CC: [facility] ([facility]) [facility]. Final Clayton Paz MD ECHO ORD * TROPONIN T (HS) ONE TIME (08/27/2023 5:41 PM VICE PRESIDENT OF HUMAN RESOURCES) TROPONIN T HS 9 6-10 ng/L ng/L 08/27/2023 6:33 PM VICE PRESIDENT OF HUMAN RESOURCES [facility] Blood BLOOD SPECIMEN / Unknown Venipuncture / Unknown 08/27/2023 5:41 PM VICE PRESIDENT OF HUMAN RESOURCES 08/27/2023 5:45 PM VICE PRESIDENT OF HUMAN RESOURCES Praveen Bustillo MD CHEMISTRY [facility] [address] [place], [place] [id number] * CT CHEST PE STUDY (08/27/2023 5:18 PM VICE PRESIDENT OF HUMAN RESOURCES) Anatomical Region Laterality Modality CHEST, THORAX, HEART Computed To mography 08/27/2023 6:12 PM VICE PRESIDENT OF HUMAN RESOURCES Impressions 08/27/2023 6:12 PM VICE PRESIDENT OF HUMAN RESOURCES 1. No pulmonary emboli. 2. Diffuse esophageal [...] PM (Electronically Signed) Narrative 08/27/2023 6:12 PM VICE PRESIDENT OF HUMAN RESOURCES For Patients: ??As a result of the [...] T ACUTE W/2HR REFLEX (08/27/2023 3:45 PM VICE PRESIDENT OF HUMAN RESOURCES) TROPONIN T HS 9 6-10 ng/L ng/L 08/27/2023 4:08 PM VICE PRESIDENT OF HUMAN RESOURCES [facility] Blood BLOOD SPECIMEN / Unknown Venipuncture / Unknown 08/27/2023 3:45 PM VICE PRESIDENT OF HUMAN RESOURCES 08/27/2023 3:48 PM VICE PRESIDENT OF HUMAN RESOURCES Narrative [facility] - 08/27/2023 4:08 PM VICE PRESIDENT OF HUMAN RESOURCES hs-cTnT (Elecsys Troponin T Gen 5) concentration [...] department patient population. Praveen Bustillo MD CHEMISTRY [facility] [address] [place] [address] * (ABNORMAL) CBC w PLT no Diff (08/27/2023 3:45 PM VICE PRESIDENT OF HUMAN RESOURCES) WHITE BLOOD COUNT 7.2 4.5 - 11.0 thou/cu mm 08/27/2023 3:58 PM [facility] RED BLOOD COUNT 4.69 4.00 - 5.20 mil/cu mm 08/27/2023 3:58 PM [facility] HEMOGLOBIN 11.2(L) 12.0 - 16.0 g/dL 08/27/2023 3:58 PM [facility] HEMATOCRIT 35.5 33.0 - 51.0 % 08/27/2023 3:58 PM [facility] MCV 76(L) 80 - 100 fL 08/27/2023 3:58 PM [facility] MCH 23.9(L) 26.0 - 34.0 pg 08/27/2023 3:58 PM [facility] MCHC 31.5(L) 32.0 - 36.0 g/dL 08/27/2023 3:58 PM [facility] RDW 18.4(H) 11.5 - 15.5 % 08/27/2023 3:58 PM [facility] PLATELET COUNT 233 140 - 440 thou/cu mm 08/27/2023 3:58 PM [facility] MPV 10.7 6.5 - 11.0 fL 08/27/2023 3:58 PM [facility] Blood BLOOD SPECIMEN / Unknown Venipuncture / Unknown 08/27/2023 3:45 PM VICE PRESIDENT OF HUMAN RESOURCES 08/27/2023 3:48 PM VICE PRESIDENT OF HUMAN RESOURCES Praveen Bustillo MD HEMATOLOGY Performing Organization Address City/State/[facility] Co de Phone Number [facility] [address] [place] [address] * PROTIME-INR (08/27/2023 3:45 PM VICE PRESIDENT OF HUMAN RESOURCES) INR 1.0 <1.3 08/27/2023 4:00 PM [facility] PROTIME 11.2 10.3 - 12.3 sec 08/27/2023 4:00 PM [facility] Blood BLOOD SPECIMEN / Unknown Venipuncture / Unknown 08/27/2023 3:45 PM VICE PRESIDENT OF HUMAN RESOURCES 08/27/2023 3:48 PM VICE PRESIDENT OF HUMAN RESOURCES [facility] - 08/27/2023 4:00 PM VICE PRESIDENT OF HUMAN RESOURCES ?Therapeutic Range 2.0-3.0 for most anticoagulated patients [...] Praveen Bustillo MD HEMATOLOGY Performing Organization Address [facility] de Phone Number [facility] [address] [place] [address] * (ABNORMAL) D-Dimer Quantitative (08/27/2023 3:45 PM VICE PRESIDENT OF HUMAN RESOURCES) [facility] D-DIMER,QUANTI TATIVE 0.88(H) <0.49 FEU mcg/mL FEU mcg/mL 08/27/2023 4:00 PM VICE PRESIDENT OF HUMAN RESOURCES [facility] D-DIMER INTERP Abnormal(A ) 08/27/2023 4:00 PM [facility] Blood BLOOD SPECIMEN / Unknown Venipuncture / Unknown 08/27/2023 3:45 PM VICE PRESIDENT OF HUMAN RESOURCES 08/27/2023 3:48 PM VICE PRESIDENT OF HUMAN RESOURCES [facility] - 08/27/2023 4:00 PM VICE PRESIDENT OF HUMAN RESOURCES The cut off value for exclusion of Deep Vein Thrombosis and / or Pulmonary Embolism is 0.50 FEU mcg/mL For patients greater than 50 years of age the upper limit is age dependent and was calculated with the formula: ?? (PATIENT AGE x 0.01) FEU mcg/mL = Upper limit of normal range Praveen Bustillo MD HEMATOLOGY Performing Organization Address [facility] Co de Phone Number [facility] [address] [place] [address] * (ABNORMAL) Basic Metabolic Panel (08/27/2023 3:45 PM VICE PRESIDENT OF HUMAN RESOURCES) SODIUM 142 136 - 145 mmol/L 08/27/2023 4:08 PM [facility] POTASSIUM 5.3(H) 3.5 - 5.1 mmol/L 08/27/2023 4:08 PM [facility] CHLORIDE 105 98 - 107 mmol/L 08/27/2023 4:08 PM [facility] CO2,TOTAL 28 22 - 29 mmol/L 08/27/2023 4:08 PM [facility] ANION GAP 9 5 - 18 08/27/2023 4:08 PM [facility] GLUCOSE 96 70 - 99 mg/dL 08/27/2023 4:08 PM [facility] CALCIUM 9.4 8.8 - 10.2 mg/dL 08/27/2023 4:08 PM [facility] BUN 14 8 - 23 mg/dL 08/27/2023 4:08 PM [facility] CREATININE 0.74 0.50 - 0.90 mg/dL 08/27/2023 4:08 PM [facility] BUN/CREAT RATIO 19 10 - 20 4:08 PM [facility] eGFR 86(L) >90 mL/min/1.7 3m2 08/27/2023 4:08 PM [facility] Comment:As of 2021, eG FR is calculated by the CKD-EPI creatinine equation without race adjustment. ??eGFR can be influenced by muscle mass, exercise, and diet. ??The reported eGFR is an estimation only and is only applicable if the renal function is stable. Blood BLOOD SPECIMEN / Unknown Venipuncture / Unknown 08/27/2023 3:45 PM VICE PRESIDENT OF HUMAN RESOURCES 08/27/2023 3:48 PM VICE PRESIDENT OF HUMAN RESOURCES Praeven Bustillo MD CHEMISTRY [facility] [address] [place] [address] * XR CHEST 1 VIEW PORTABLE (08/27/2023 3:44 PM VICE PRESIDENT OF HUMAN RESOURCES) Anatomical Region Laterality Modality HEART, THORAX, CHEST Digital Rad iography 08/27/2023 4:20 PM VICE PRESIDENT OF HUMAN RESOURCES Impressions 08/27/2023 4:20 PM VICE PRESIDENT OF HUMAN RESOURCES No acute cardiopulmonary findings. Dictated by Katelynn Narvaez MD @ 08/27/2023 4:20:05 PM (Electronically Signed) Narrative 08/27/2023 4:20 PM VICE PRESIDENT OF HUMAN RESOURCES For Patients: ??As a result of the [...] * EKG 12 LEAD (08/27/2023 2:57 PM VICE PRESIDENT OF HUMAN RESOURCES) Interpretation Normal sinus rhythm Normal ECG No [...] NOW QTc 410 ms BEYOND NOW P [place] 44 degrees BEYOND NOW R [place] 10 degrees BEYOND NOW T [place] 82 degrees BEYOND NOW 08/27/2023 2:57 PM VICE PRESIDENT OF HUMAN RESOURCES 08/27/2023 8:59 PM VICE PRESIDENT OF HUMAN RESOURCES Ryan Ed Triage EKG ORD BEYOND NOW [place], [place] from Last 3 Months Care Teams Electro Mechanical Technologist Relationship Specialty Start Date End Date Lilli Lizarraga MD [address] [place] [address] PCP - General Internal Medicine 08/27/23
== END 2023-11-20 09:19 | disposition home or self-care (01) ==
LOC: NFLDREF 11-21 10:22
PROVIDERS: PCP Internal Medicine; Referring Provider Internal Medicine; Visit Provider Internal Medicine
DX: E78.5 Hyperlipidemia, unspecified (principal); M81.0 Age-related osteoporosis without current pathological fracture; I10 Essential (primary) hypertension; E03.9 Hypothyroidism, unspecified
CPT/HCPCS: 80048; 80061; 82306; 84443

== ENCOUNTER 2023-12-01 09:38 | Emergency (ER) | payer MEDICARE, SELFPAY ==
[2023-12-01 09:54] VITALS: BP 166/96; PULSE 73; RESP 18; TEMP 36.8; O2SAT 100; BMI 30.8
[2023-12-01 10:09] VITALS: O2SAT 99
--- NOTE | 2023-12-01 10:09 | CT_ITS ---
Patient: PATT YOUNG Facility:?[facility] RIS Patient ID:?[id number] Site Patient ID:?[id number]. Site :?1950 Study:?CT-Abdomen/Pelvis w/o-12/01/2023 10:21:38 AM Ordering Physician:Betsy Otero Final Report: Indication: Left flank pain Technique: CT pelvis contrast. Multiplanar reformats are included. Comparison: None Findings: Lung bases are clear. The liver gallbladder and bile ducts are normal. The pancreas is normal. The spleen is normal. The adrenal glands are normal. The kidneys are normal. No urinary tract dilatation. No urinary tract calculi seen. The urinary bladder is obscured by streak artifact from the hip arthroplasties. Lap band device. Small hiatal hernia versus distended distal esophagus with wall thickening. No dilated or inflamed bowel. Moderate stool. The appendix is normal. No ascites or adenopathy. Atherosclerotic vascular calcifications without aortic aneurysm. No fractures or focal bone lesions. Small fat containing periumbilical hernia. Bilateral hip arthroplasties. Impression: 1. No urinary tract calculi or urinary tract dilatation. No CT explanation for the patient`s left flank pain. 2. Lap band device. Small hiatal hernia versus mildly dilated thick-walled distal esophagus. Please note that all CT scans at this facility use dose modulation, iterative reconstruction, and/or weight-based dosing when appropriate to reduce radiation dose to as low as reasonably achievable. Dictated by Aarti Crystal MD @ 12/01/2023 10:46:34 AM Signed by:?Aarti Crystal MD @12/01/2023 10:46:34 AM (Electronic Signature)
--- NOTE | 2023-12-01 10:12 | ED_ITS ---
HPI - General Adult General Chief complaint: Flank Pain Stated complaint: possible kidney stone Time Seen by Provider: 12/01/23 10:06 History of Present Illness HPI narrative: Patient is a pleasant 73-year-old female who for 3 days has had some left flank pain. She initially thought it was a strained muscle but now it has been more intense. Does not really radiate markedly to her groin but does seem to radiate a little bit to the anterior abdomen. She has had no fever chills, no h ematuria. Patient denies rigors or chills. She has had no chest pain shortness of breath. She is to had no history of kidney stone. She has history of allergic reaction cortisone and lisinopril, her medications and past medical history reviewed, she has a history of chronic low back pain. No bowel or bladder dysfunction, no radicular symptoms. Pain is nonpalpable, and she is having trouble finding a comfortable position. Related Data Home Medications Medication Instructions Recorded Confirmed aspirin 81 mg tablet,delayed 81 mg PO DAILY 07/12/22 11/25/23 release Previous Rx's Medication Instructions Recorded furosemide 20 mg tablet 20 mg PO QAM PRN edema #90 tabs 07/12/22 albuterol sulfate 90 mcg/actuation 2 puff inhalation Q4H PRN 10/01/23 aerosol inhaler bronchospasm #6.7 grams amlodipine 2.5 mg tablet 2.5 mg PO DAILY #90 tabs 11/25/23 amlodipine 5 mg tablet 5 mg PO DAILY #90 tabs 11/25/23 levothyroxine 125 mcg tablet 125 mcg PO DAILY #90 tabs 11/25/23 rosuvastatin 10 mg tablet 10 mg PO DAILY #90 tabs 11/25/23 venlafaxine 75 mg capsule,extended 75 mg PO DAILY #90 caps 11/25/23 release 24 hr hydrocodone 5 mg-acetaminophen 325 1 tab PO Q8H PRN pain #14 tabs 12/01/23 mg tablet Allergies Allergy/AdvReac Type Severity Reaction Status Date / Time cortisone AdvReac Unknown malignant Verified 11/25/23 10:07 hypertension lisinopril AdvReac Unknown Verified 11/25/23 10:07 Review of Systems Status of ROS: Reports: 6 or more systems reviewed and unremarkable except as noted in History and below PFSH PFSH Surgical History History of total knee replacement (2019) ?Z96.659 - Presence of unspecified artificial knee joint (ICD-10) History of total hysterectomy with bilateral salpingo-oophorectomy (BSO) (2012) ?Z90.710 - Acquired absence of both cervix and uterus (ICD-10) ?Z90.722 - Acquired absence of ovaries, bilateral (ICD-10) ?Z90.79 - Acquired absence of other genital organ(s) (ICD-10) History of total hip replacement (2018) ?Z96.649 - Presence of unspecified artificial hip joint (ICD-10) History of tonsillectomy ?Z90.89 - Acquired absence of other organs (ICD-10) History of reduction mammoplasty (1997) ?Z98.890 - Other specified postprocedural states (ICD-10) History of adjustable gastric banding (2002) ?Z98.84 - Bariatric surgery status (ICD-10) Social History What is your current living situation?: I presently have a place to live Problems where you live: declined to answer In the past 12 months, utilities in danger of being shut off: no In past 12 months, lack of transportation kept you from medical appts, meetings, work, or getting things needed for daily living: no In the past 12 mos, have been you worried that your food would run out before you had money to buy more?: never true In the past 12 mos, the food you bought just didn't last and you didn't have money to buy more?: never true Smoking Status: Never smoker Non-prescribed substance use: denies use How often does anyone, including family, friends and others, physically hurt you : never How often does anyone, including family, friends and others, insult or talk down to you: never How often does anyone, including family, friends and others, threaten you with harm: never How often does anyone, including family, friends and others, scream or curse at you: never Little interest or pleasure in doing things: not at all Feeling down, depressed, or hopeless: not at all Exam Narrative: Exam Narrative: Objective: Patient is in mild distress due to discomfort it seems to come and go and a spasm gary kind of fashion Alert orient x3 Vital signs short of the afebrile, mildly hypertensive HEENT unremarkable neck supple pulse regular chest back abdomen unremarkable she has no palpable left CVA pain Abdomen is benign soft nontender no masses Extremities are no edema neurologic nonfocal Good peripheral perfusion noted. Const: Vital Signs, click to edit/add: Vital Signs - 24 hr 12/01/23 09:54 12/01/23 10:09 Temperature 98.2 F Pulse Rate [Right Pulse Oximeter] 73 Respiratory Rate 18 Blood Pressure [Ri ght Upper Arm] 166/96 H Pulse Oximetry 100 99 Oxygen Delivery Me thod Room Air Course Vital Signs Vital signs: Initial Vital Signs Temperature 98.2 F 12/01/23 09:54 Temperature Source Temporal Artery Scan 12/01/23 09:54 Pulse Rate 73 12/01/23 09:54 Respiratory Rate 18 12/01/23 09:54 Blood Pressure 166/96 H 12/01/23 09:54 Blood Pressure Mean 119 H 12/01/23 09:54 Blood Pressure Position Sitting 12/01/23 09:54 Pulse Oximetry 100 12/01/23 09:54 Oxygen Delivery Method Room Air 12/01/23 09:54 Vital Signs Temperature 98.2 F 12/01/23 09:54 Pulse Rate 73 12/01/23 09:54 Respiratory Rate 18 12/01/23 09:54 Blood Pressure 166/96 H 12/01/23 09:54 Pulse Oximetry 100 12/01/23 09:54 Oxygen Delivery Method Room Air 12/01/23 09:54 Temperature 98.2 F 12/01/23 09:54 Pulse Rate 73 12/01/23 09:54 Respiratory Rate 18 12/01/23 09:54 Blood Pressure 166/96 H 12/01/23 09:54 Pulse Oximetry 99 12/01/23 10:09 Oxygen Delivery Method Room Air 12/01/23 09:54 Medications Administered Medications: Discontinued Medications Generic Name Dose Route Start Last Admin Trade Name Freq PRN Reason Stop Dose Admin Hydromorphone HCl 0.5 mg 12/01/23 12:11 12/01/23 12:30 Hydromorphone 0.5 Mg/0.5 Ml Inj IVP 12/01/23 12:12 0.5 mg ONCE ONE Administration Sodium Chloride 500 mls @ 500 mls/hr 12/01/23 10:09 12/01/23 11:43 0.9 % Sodium Chloride 500 Ml IV 12/01/23 11:08 Infused .Q1H ONE Infusion Morphine Sulfate 4 mg 12/01/23 10:09 12/01/23 10:51 Morphine 4 Mg/Ml Inj IVP 12/01/23 10:10 4 mg ONCE ONE Administration Medical Decision Making [facility] Narrative Medical decision making narrative: 73-year-old white female with a history of left flank pain for 3 days worsening today. Intermittent in nature. Hard to find a comfortable position. Suspect she might have a kidney stone. Rule out pyelonephritis, rule out intestinal infection intra-abdominal infection. Patient will get CT scan without contrast of her abdomen pelvis, will check urinalysis, check lab studies. Will give her some IV fluid, IV pain medication in the form of morphine. Disposition pending findings above. Addendum 12:11 p.m. patient to get some good relief from the initial morphine, now pain is recurred some in her left flank, her CT scan of the abdomen pelvis is unremarkable. She points to her CVA area on the left where she has discomfort. Certainly this could be soft tissue muscular. I think another dose of IV narcotic medicine followed with home narcotics would be appropriate she can continue to take ibuprofen that she does at home on a regular basis. Recommend ice and light activity. She could have intercostal spasm or simply paravertebral muscle spasm at this point I think would recommend she try the pain medicine light activity ice to the area Advil and then recheck with regular doctor next 2-3 days, return to ED sooner problems or concerns. Lab Data Labs: Lab Results 12/01/23 12/01/23 Range/Units 10:14 10:46 WBC 9.37 (4.50-11.00) K/uL RBC 4.70 (4.00-5.20) m/uL Hgb 11.5 L (12.0-16.0) gm/dL Hct 35.9 (33.0-51.0) % MCV 76 L (80-100) fL MCH 25 L (26-34) pg MCHC 32 (32-36) gm/dL RDW Coeff of Aston 15.8 H (11.5-15.5) % Plt Count 221 (140-440) K/uL Neut % (Auto) 77.7 H (42.0-72.0) % Lymph % (Auto) 14.5 L (20-44) % Wood % (Auto) 7.0 (0.0-11.0) % Eos % (Auto) 0.4 (0.0-7.0) % Baso % (Auto) 0.3 (0.0-3.0) % Neut # (Auto) 7.30 H (1.7-7.0) K/uL Lymph # (Auto) 1.40 (0.90-2.90) K/uL Wood # (Auto) 0.70 (0.00-0.90) K/UL Eos # (Auto) 0.04 (0.00-0.50) K/uL Baso # (Auto) 0.03 (0.00-0.30) K/uL Abs Immat Gran (auto) 0.01 (0.00-0.30) K/uL Imm/Tot Granulo (auto) 0.1 % Sodium 136 (135-149) mmol/L Potassium 3.9 (3.6-5.1) mmol/L Chloride 102 (96-114) mmol/L Carbon Dioxide 24 (20-32) mmol/L Anion Gap 10 (7-15) mEq/L BUN 14 (7-30) mg/dL Creatinine 0.8 (0.5-1.5) mg/dL Estimated Creat Clear 47.60 Estimated GFR 78 ml/min Glucose 105 (60-115) mg/dL Calcium 9.7 (8.4-10.6) mg/dL C-Reactive Protein < 0.5 L (0.5-1.0) mg/dL Urine Color Yellow (Yellow) Urine Appearance Slightly Cloudy A (Clear) Urine pH 7.0 (5.0-8.5) Ur Specific [place] 1.025 (1.000-1.030) Urine Protein Negative (Negative) Urine Glucose (UA) Negative (Negative) Urine Ketones Negative (Negative) Urine Blood Trace-intact A (Negative) Urine Nitrite Negative (Negative) Urine Bilirubin Negative (Negative) Urine Urobilinogen 0.2 (0.2-1.0) Ur Leukocyte Esterase Trace A (Negative) Urine RBC 0-2 (0-2) Urine WBC 2-5 (0-5) Ur Squamous Epith Cells Few (None-Few) Urine Bacteria Few A (None) Discharge Plan Discharge Clinical Impression: Left flank pain Patient Disposition: Home w/ Parent or Adult Condition: Improved Additional Instructions: Light activity, ice to the affected area 5-10 minutes 3 times a day, Advil as needed 3 times a day, may use pain medicine as needed cautioned about sedative effect. Recheck with regular doctor in the next 2-3 days, return to ED sooner problems or concerns or recurrent pain Activity Level: Light activity Discharge Diet: Regular Prescriptions: New hydrocodone-acetaminophen 5-325 mg tablet 1 tab PO Q8H PRN (Reason: pain) Qty: 14 0RF No Action aspirin 81 mg tablet,delayed release (DR/EC) 81 mg PO DAILY furosemide 20 mg tablet 20 mg PO QAM PRN (Reason: edema) Qty: 90 4RF venlafaxine 75 mg capsule,extended release 24hr 75 mg PO DAILY Qty: 90 3RF rosuvastatin 10 mg tablet 10 mg PO DAILY Qty: 90 3RF amlodipine 5 mg tablet 5 mg PO DAILY Qty: 90 3RF amlodipine 2.5 mg tablet 2.5 mg PO DAILY Qty: 90 3RF albuterol sulfate 90 mcg/actuation HFA aerosol inhaler 2 puff inhalation Q4H PRN (Reason: bronchospasm) Qty: 6.7 11RF levothyroxine 125 mcg tablet 125 mcg PO DAILY Qty: 90 3RF Follow Up/Referrals: Lilli Lizarraga MD [Primary Care Provider] - Stand Alone Forms: [employer] Info Instructions
[2023-12-01 10:21] LABS: Appearance Urine Slightly Cloudy (Clear); Bilirubin Urine Negative (Negative); Blood Urine Trace-intact (Negative); Color Urine Yellow (Yellow); Glucose Urine Negative (Negative); Ketones Urine Negative (Negative); Leukocyte Esterase Urine Trace (Negative); Nitrite Urine Negative (Negative); Protein Urine Negative (Negative); Specific Gravity Urine 1.025 (1.000-1.030); Urobilinogen Urine 0.2 (0.2-1.0)
[2023-12-01 10:27] LABS: RBC Urine 0-2 (0-2)
[2023-12-01 10:28] LABS: Bacteria Urine Few; Squamous Epithelial Cell Urine Few (None-Few)
[2023-12-01] MEDS: MORPHINE 4 MG/ML INJ IVP (10:51)
[2023-12-01] MEDS: 0.9 % SODIUM CHLORIDE 500 ML 500 ML IV (10:51)
[2023-12-01 11:04] LABS: Basophils Absolute Auto 0.03 K/uL (0.00-0.30); Basophils Percent Auto 0.3 % (0.0-3.0); Eosinophils Absolute Auto 0.04 K/uL (0.00-0.50); Eosinophils Percent Auto 0.4 % (0.0-7.0); Hematocrit 35.9 % (33.0-51.0); Hemoglobin* 11.5 gm/dL (12.0-16.0); Immature Granulocytes Abs Auto 0.01 K/uL (0.00-0.30); Immature Granulocytes Pct Auto 0.1 %; Lymphocytes Percent Auto 14.5 % (20-44); Mean Corpuscular HGB Conc 32 gm/dL (32-36); Mean Corpuscular Hemoglobin 25 pg (26-34); Mean Corpuscular Volume 76 fL (80-100); Neutrophils Percent Auto 77.7 % (42.0-72.0); Platelet Count* 221 K/uL (140-440); RDW Coefficient of Variation % 15.8 % (11.5-15.5); White Blood Count* 9.37 K/uL (4.50-11.00)
[2023-12-01 11:08] LABS: Slide Review Reflex No
[2023-12-01 11:25] LABS: Chloride* 102 mmol/L (96-114); Potassium* 3.9 mmol/L (3.6-5.1); Sodium* 136 mmol/L (135-149)
[2023-12-01 11:28] LABS: Creatinine* 0.8 mg/dL (0.5-1.5); Estimated Glomerular Filt Rate 78 ml/min
[2023-12-01 11:29] LABS: Anion Gap 10 mEq/L (7-15); Blood Urea Nitrogen* 14 mg/dL (7-30); Calcium* 9.7 mg/dL (8.4-10.6); Carbon Dioxide* 24 mmol/L (20-32); Glucose* 105 mg/dL (60-115)
[2023-12-01 11:32] LABS: C Reactive Protein* < 0.5 mg/dL (0.5-1.0)
[2023-12-01] MEDS: HYDROmorphone 0.5 mg/0.5 ml inj IVP (12:30)
== END 2023-12-01 12:31 | disposition home or self-care (01) ==
PROVIDERS: Emergency Provider Family Medicine; PCP Internal Medicine
DX: R10.9 Unspecified abdominal pain (principal)
CPT/HCPCS: 36415; 74176; 80048; 81001; 85025; 86140; 87086; 94761; 96374; 96375; 99284; J1170; J2270; J7030

== ENCOUNTER 2023-12-04 14:46 | Outpatient (CLI) | payer MEDICARE, SELFPAY ==
--- NOTE | 2023-12-04 15:00 | US_ITS ---
Patient: PATT YOUNG Facility:?[facility] Patient ID:?[id number] Site Patient ID:?[id number]. Site :?[id number] Study:?US-Neck Angio CAROTID-12/04/2023 3:45:19 PM Ordering Physician:?AIMEE DOW Final Report: INDICATION: Carotid stenosis TECHNIQUE: Conventional two-dimensional yousif-scale ultrasound as well as color-flow and pulsed Doppler carotid and vertebral arterial flow evaluation. COMPARISON: Carotid ultrasound of 08/22/2021 FINDINGS: Calcified carotid bulb plaques are again demonstrated bilaterally. Due to plaque shadowing, the degree of right carotid stenosis can not be assessed on the grayscale images. The grayscale images appear to demonstrate mild stenosis of less than 50 percent on the left. Doppler spectral analysis demonstrates peak systolic flow rate of 198 cm/sec in the right internal carotid artery and 90 cm/sec in the left. The ICA-CCA systolic flow ratio on the right is 2.5 and on the left is 1.2. Antegrade vertebral arterial flow is demonstrated bilaterally. IMPRESSION: 1. Calcified right carotid bulb plaque producing moderate stenosis in the 50-69 percent range by NASCET criteria. 2. Calcified left carotid bulb plaque producing mild stenosis of less than 50 percent by NASCET criteria. 3. Antegrade flow in both vertebral arteries. Dictated by Praveen Phillips MD @ 12/05/2023 8:41:04 AM Signed by:?Praveen Phillips MD @12/05/2023 8:41:04 AM (Electronic Signature)
== END 2023-12-04 14:47 | disposition home or self-care (01) ==
LOC: US 14:47
PROVIDERS: PCP Internal Medicine; Visit Provider Internal Medicine
DX: I65.29 Occlusion and stenosis of unspecified carotid artery (principal); I65.23 Occlusion and stenosis of bilateral carotid arteries
CPT/HCPCS: 93880

== ENCOUNTER 2024-10-27 06:36 | Outpatient (CLI) | payer MEDICARE, SELFPAY ==
--- NOTE | 2024-10-27 08:09 | P.ANES_ITS ---
Anesthesia Charges Start Date/Time Anesthesia Start Date: 10/27/24 Anesthesia Start Time: 07:20 Stop Date/Time Anesthesia Stop Date: 10/27/24 Anesthesia Stop Time: 08:06 Coding CPT Codes CPT Codes: AZUCENA LWR INTST NDSC NOS - 52702 ([id number]) P2 - PATIENT W/MILD SYST DISEASE, QK - COLLIERY CLERK 2-4 CNCRNT ANES PROC, QX - ASSISTANT STORE DIRECTOR SVC W/ MD MED DIRECTION
--- NOTE | 2024-10-27 08:09 | W.ANESCHARGE ---
Anesthesia Charges Start Date/Time Anesthesia Start Date: 10/27/24 Anesthesia Start Time: 07:20 Stop Date/Time Anesthesia Stop Date: 10/27/24 Anesthesia Stop Time: 08:06 Coding CPT Codes CPT Codes: AZUCENA LWR INTST NDSC NOS - [id number] ([id number]) P2 - PATIENT W/MILD SYST DISEASE, QK - MARKETING ADMINISTRATIVE ASSISTANT 2-4 CNCRNT ANES PROC, QX - REPAIR ARMATURE WINDER HELPER SVC W/ MD MED DIRECTION
--- NOTE | 2024-10-27 08:48 | P.ANES_ITS ---
Anesthesia Charges Start Date/Time Anesthesia Start Date: 10/27/24 Anesthesia Start Time: 07:20 Stop Date/Time Anesthesia Stop Date: 10/27/24 Anesthesia Stop Time: 08:06 Summary Extremes of Age - Over 70 or under 1: MDA Coding CPT Codes CPT Codes: ANES LWR INTST NDSC NOS - [id number] ([id number]) P2 - PATIENT W/MILD SYST DISEASE, QK - ACCOUNT REVIEW SPECIALIST 2-4 CNCRNT ANES PROC, QX - INFANTRY SENIOR SERGEANT SVC W/ MD MED DIRECTION Additional Codes: Summary - Extremes of Age - Over 70 or under 1: MDA ([id number])
--- NOTE | 2024-10-27 08:48 | W.ANESCHARGE ---
Anesthesia Charges Start Date/Time Anesthesia Start Date: 10/27/24 Anesthesia Start Time: 07:20 Stop Date/Time Anesthesia Stop Date: 10/27/24 Anesthesia Stop Time: 08:06 Summary Extremes of Age - Over 70 or under 1: MDA Coding CPT Codes CPT Codes: ANES LWR INTST NDSC NOS - 71741 ([id number]) P2 - PATIENT W/MILD SYST DISEASE, QK - FURNITURE ASSEMBLY SUPERVISOR 2-4 CNCRNT ANES PROC, QX - PUBLIC HEALTH SOCIAL WORKER SVC W/ MD MED DIRECTION Additional Codes: Summary - Extremes of Age - Over 70 or under 1: MDA ([id number])
== END 2024-10-27 06:37 | disposition home or self-care (01) ==
PROVIDERS: PCP Internal Medicine; Visit Provider Surgery
DX: Z12.11 Encounter for screening for malignant neoplasm of colon (principal); D12.0 Benign neoplasm of cecum; D12.3 Benign neoplasm of transverse colon; K64.8 Other hemorrhoids; K57.30 Diverticulosis of large intestine without perforation or abscess without bleeding; Z15.09 Genetic susceptibility to other malignant neoplasm
CPT/HCPCS: 00811; 45385; 88305; 99100; J2704

== ENCOUNTER 2024-11-23 10:34 | Outpatient (CLI) | payer MEDICARE, SELFPAY | END 2024-11-23 10:35 | disposition home or self-care (01) | LOC: NFLDREF 11-25 08:10 | PROVIDERS: PCP Internal Medicine; Referring Provider Internal Medicine; Visit Provider Internal Medicine | DX: E78.5 Hyperlipidemia, unspecified (principal); E03.9 Hypothyroidism, unspecified; I10 Essential (primary) hypertension; M85.80 Other specified disorders of bone density and structure, unspecified site | CPT/HCPCS: 80048; 80061; 82306; 84443 ==

== ENCOUNTER 2025-01-19 09:04 | Outpatient (CLI) | payer MEDICARE, SELFPAY ==
--- NOTE | 2025-01-19 09:15 | CRLHL7_ITS ---
For Patients: As a result of the Century Cures Act, medical imaging exams and procedure reports are released immediately into your electronic medical record. You may view this report before your referring provider. If you have questions, please contact your health care provider. INDICATION: BILATERAL SCREENING MAMMOGRAM, ASYMPTOMATIC 74 Y/O FEMALE COMPARISON: 10/25/23, 09/11/22, 07/07/21 TECHNIQUE: CC and MLO views were obtained. These mammographic images have been obtained using full-field digital technique. These mammographic images were interpreted with the benefit of computer aided detection and tomosynthesis. BREAST COMPOSITION: There are scattered areas of fibroglandular density. FINDINGS: No suspicious findings. ASSESSMENT: BI-RADS 2 Benign RECOMMENDATION: Annual screening mammogram. A lay language report of this examination will be provided to the patient. Dictated by: Talat Foy MD @ 01/27/2025 10:50:02 (Electronically Signed)
== END 2025-01-19 09:05 | disposition home or self-care (01) ==
LOC: MAMMO 09:05
PROVIDERS: PCP Internal Medicine; Visit Provider Internal Medicine
DX: Z12.31 Encounter for screening mammogram for malignant neoplasm of breast (principal)
CPT/HCPCS: 77063; 77067